=== PATIENT | male | born 1950 | race Hispanic/Latino ===

== ENCOUNTER 2024-02-29 09:14 | Day surgery (SDC) | payer MEDICARE ==
[2024-02-28 14:16] LABS: BASOPHILS # (AUTO) 0.02 K/uL (0.00-0.20); BASOPHILS % (AUTO) 0.3 % (0.0-5.0); EOSINOPHILS # (AUTO) 0.04 K/uL (0.00-0.70); EOSINOPHILS % (AUTO) 0.6 % (0.0-8.0); IMMATURE GRANULOCYTE ABSOLUTE 0.01 K/uL (0-1); LYMPHOCYTES # (AUTO) 2.7 K/uL (1.0-4.8); LYMPHOCYTES % (AUTO) 40.3 % (21.0-51.0); MEAN CORPUSCULAR HEMOGLOBIN 30.2 pg (27.0-33.0); MEAN CORPUSCULAR HGB CONC 34.5 g/dL (32.0-36.0); MEAN CORPUSCULAR VOLUME 87.6 fL (79-99); MONOCYTES # (AUTO) 0.3 K/uL (0.1-1.0); NEUTROPHILS # (AUTO) 3.6 K/uL (1.8-7.7); NEUTROPHILS % (AUTO) 53.6 % (40.0-77.0); PLATELET COUNT (AUTO) 179 K/uL (130-400); RED BLOOD CELL COUNT(AUTO) 3.54 MIL/uL (4.50-6.20); WHITE BLOOD COUNT (AUTO) 6.7 K/uL (4.8-10.8)
[2024-02-28 14:21] LABS: APPEARANCE,URINE CLEAR (CLEAR); BILIRUBIN,URINE NEGATIVE (NEGATIVE); COLOR,URINE COLORLESS (YELLOW); GLUCOSE, URINE (UA) NEGATIVE (NEGATIVE); KETONES,URINE NEGATIVE (NEGATIVE); LEUKOCYTE ESTERASE ,URINE NEGATIVE Leu/uL (NEGATIVE); NITRATE,URINE NEGATIVE (NEGATIVE); OCCULT BLOOD,URINE NEGATIVE (NEGATIVE); PROTEIN,URINE NEGATIVE (NEGATIVE); UROBILINOGEN,URINE 0.2 mg/dL (0.2-1.0)
[2024-02-28 14:23] LABS: ADD UA MICROSCOPIC YES
[2024-02-28 14:29] LABS: MUCUS,URINE RARE LPF (None Seen); SQUAMOUS EPITHELIAL CELL,UR RARE /HPF (0-2)
[2024-02-28 14:30] VITALS: BP 134/61; PULSE 67; RESP 18
[2024-02-28 14:32] LABS: CREATININE 1.2 mg/dL (0.5-1.3); POTASSIUM 4.6 mmol/L (3.5-5.1)
[2024-02-28 14:33] LABS: INR <= 0.93 (0.85-1.15); PROTHROMBIN TIME 10.6 SEC (9.6-11.6)
[2024-02-28 14:34] LABS: PARTIAL THROMBOPLASTIN TIME 25.3 SEC (26.3-35.5)
[2024-02-28 14:36] LABS: B-TYPE NATRIURETIC PEPTIDE 239 pg/mL (0-100)
[2024-02-29] VITALS (14 sets, daily range): BP systolic 119–140; BP diastolic 58–71; PULSE 58–68; RESP 14–18
[~2024-02-29] VITALS: Ht 167.6 cm; Wt 91.9 kg
[~2024-02-29 09:14] MED LIST: ASPI-1443 PO; DULA0.75 SQ; FURO20TA4 PO; ISOS30TA92 PO; LISI2.5T13 PO; METF-446 PO; METO25TA6 PO; NITR0.4T50 SL; ROSU40TA70 PO
[2024-02-29] MEDS: 0.9%NACL 1000ML 1,000 ML IV ONE (10:37)
[2024-02-29] MEDS ORDERED: BIVALIRUDIN 250 MG/VIAL IV ONE (11:20)
[2024-02-29] MEDS ORDERED: HEPARIN 10,000 UNIT/10ML (1,000 UNIT/ML) VIAL ONE (11:20)
[2024-02-29] MEDS ORDERED: NICARDIPINE 25MG INJ IV ONE (11:20)
[2024-02-29] MEDS ORDERED: LIDOCAINE HCL 400MG/20ML VIAL ONE (11:20)
[2024-02-29] MEDS ORDERED: MIDAZOLAM HCL 1 MG/ML 2ML VIAL ONE (11:21)
[2024-02-29] MEDS ORDERED: NITROGLYCERIN 50MG VIAL ONE (11:21)
[2024-02-29] MEDS ORDERED: FENTANYL CITRATE PF 50 MCG/1 ML 2ML VIAL ONE (11:21)
[2024-02-29] MEDS ORDERED: SODIUM BICARB 50MEQ 50ML VIAL 50 ML ONE (11:35)
[2024-02-29] MEDS ORDERED: IOHEXOL-350 75 ML VIAL IV ONE ×2 (11:35→12:15)
[2024-02-29] MEDS ORDERED: ATROPINE 1MG SYG IVP ONE (12:38)
[2024-02-29] MEDS ORDERED: DOPAMINE HCL 400 MG/D5%-WATER 0 ML IV ONE (12:38)
[2024-02-29] MEDS ORDERED: ASPIRIN 325MG EC TAB PO ONE (12:46)
[2024-02-29] MEDS ORDERED: TICAGRELOR 90 MG TABLET ONE (12:47)
[2024-02-29] MEDS ORDERED: FUROSEMIDE 20 MG TABLET PO SCH (13:30)
[2024-02-29] MEDS ORDERED: NITROGLYCERIN 0.4 MG SL TAB SL PRN (13:30)
[2024-02-29] MEDS ORDERED: 0.9%NACL 1000ML 1,000 ML IV SCH (13:30)
[2024-02-29] MEDS ORDERED: TICA90TA PO (13:33)
[2024-02-29] MEDS: TICAGRELOR 90 MG TABLET PO ONE (19:36)
[2024-02-29] MEDS: TICAGRELOR 90 MG TABLET PO SCH (19:36)
[2024-02-29] MEDS ORDERED: ATORVASTATIN 40 MG TABLET PO SCH (21:00)
[2024-02-29] MEDS ORDERED: METOPROLOL TARTRATE 25 MG TAB PO SCH (21:00)
[2024-03-01] MEDS ORDERED: LISINOPRIL 2.5 MG TABLET PO SCH (09:00)
[2024-03-01] MEDS ORDERED: ASPIRIN 81MG CHEW TAB PO SCH (09:00)
[2024-03-01] MEDS ORDERED: ASPIRIN 81 MG EC TAB PO SCH (09:00)
== END 2024-02-29 19:46 | disposition home or self-care (01) ==
LOC: DAH 09:14
PROVIDERS: ATTEND Internal Medicine Cardiovascular Disease
DX: R94.39 Abnormal result of other cardiovascular function study (principal); I25.110 Atherosclerotic heart disease of native coronary artery with unstable angina pectoris; I25.82 Chronic total occlusion of coronary artery; I25.720 Atherosclerosis of autologous artery coronary artery bypass graft(s) with unstable angina pectoris; I47.29 Other ventricular tachycardia; I11.0 Hypertensive heart disease with heart failure; I50.32 Chronic diastolic (congestive) heart failure; E78.2 Mixed hyperlipidemia; E11.9 Type 2 diabetes mellitus without complications; Z80.0 Family history of malignant neoplasm of digestive organs; Z80.3 Family history of malignant neoplasm of breast; Z83.3 Family history of diabetes mellitus; Z82.49 Family history of ischemic heart disease and other diseases of the circulatory system; Z79.84 Long term (current) use of oral hypoglycemic drugs; Z79.82 Long term (current) use of aspirin; Z79.899 Other long term (current) drug therapy; Z95.5 Presence of coronary angioplasty implant and graft
CPT/HCPCS: 80048; 83880; 85025; 85610; 85730; 81001; 36415; 71045; 93005; 92978; 82948 ×2; 93459; C9600; C1769 ×2; C1894 ×3; C1725; C1874 ×4; C1760; C1887; C1753; J3010; J3490 ×3; J7030; J2250; J1644; J0583; Q9967 ×2; A4215; A4222; A4221; A4663; A4216; A4606; C9601; A4223 ×3; 99156; 99157; J0461; J1265